=== PATIENT | female | born 1935 | race Caucasian/White ===

== ENCOUNTER 2019-06-01 08:14 | Emergency (ER) | payer MEDICARE, OTHER ==
[~2019-06-01] VITALS: Ht 154.9 cm; Wt 84.4 kg
[~2019-06-01 08:14] MED LIST: METO50TA16 PO
[2019-06-01] MEDS ORDERED: diphenhydrAMINE HCL 50 MG/ML VIAL ONE (08:57)
[2019-06-01] MEDS ORDERED: ONDANSETRON HCL/PF 4 MG/2 ML VIAL ONE (08:57)
[2019-06-01] MEDS ORDERED: diphenhydrAMINE HCL 50 MG/ML VIAL IV ONE (09:00)
[2019-06-01] MEDS ORDERED: ONDANSETRON HCL/PF 4 MG/2 ML VIAL IVP ONE (09:00)
[2019-06-01] MEDS ORDERED: IV NS 0.9% 1,000 ML BAG IV ONE (09:00)
--- NOTE | 2019-06-01 09:05 | NUR ---
ANIBAL RA 89 From home "General weak -woke up this am felt no energy Got up/dressed/weak BS 126. PT AAOX4, VSS, RR EVEN & UNLABORED. PT ALSO C/O UPPER ABD PAIN WITH NAUSEA/DIARRHEA THIS AM. DENIES ANY OTHER DISCOMFORT. PT SEEN & EVAL'D BY DR. HURTADO. MEDICATED ORDERED. JOB COMPOSITOR @ BS FOR EVAL & WILL CONT TO MONITOR.
[2019-06-01 09:23] LABS: BASOPHILS # (AUTO) 0.1 /CMM (0.0-0.2); BASOPHILS % (AUTO) 0.7 % (0.0-2.0); EOSINOPHILS % (AUTO) 2.1 % (0.0-6.0); HEMATOCRIT 34 % (33-45); HEMOGLOBIN 11.3 g/dL (11.5-14.8); LYMPHOCYTES # (AUTO) 2.5 /CMM (0.8-4.8); LYMPHOCYTES % (AUTO) 34.3 % (20.0-44.0); MEAN CORPUSCULAR HGB CONC 33 g/dl (31.0-36.0); MEAN CORPUSCULAR VOLUME 93 fL (82-100); MONOCYTES # (AUTO) 0.4 /CMM (0.1-1.30); NEUTROPHILS # (AUTO) 4.3 /CMM (1.8-8.9); NEUTROPHILS % (AUTO) 57.9 % (43.0-81.0); PLATELET COUNT (AUTO) 234 /CMM (150-450); RED BLOOD CELL COUNT(AUTO) 3.65 MIL/uL (4.0-5.2); WHITE BLOOD COUNT (AUTO) 7.4 K/uL (4.3-11.0)
[2019-06-01 09:28] LABS: CALCIUM, SERUM 9.4 mg/dL (8.5-10.1); CARBON DIOXIDE 28 mmol/L (21-32); CHLORIDE 106 mmol/L (98-107); CREATININE 1.7 mg/dL (0.6-1.3); GLUCOSE 136 mg/dL (74-106); SODIUM SERUM 142 mmol/L (136-145); UREA NITROGEN, BLOOD 29 mg/dL (7-18)
[2019-06-01 09:34] LABS: ALANINE AMINOTRANSFERASE 23 U/L (12-78); ALBUMIN 3.1 g/dL (3.4-5.0); ALKALINE PHOSPHATASE 63 U/L (46-116); ASPARTATE AMINOTRANSFERASE 20 U/L (15-37); BILIRUBIN,DIRECT 0.1 mg/dL (0.0-0.2); BILIRUBIN,TOTAL 0.2 mg/dL (0.2-1.0); TOTAL PROTEIN, SERUM 7.1 g/dL (6.4-8.2)
[2019-06-01 10:49] VITALS: BP 124/84
--- NOTE | 2019-06-01 10:49 | NUR ---
Patient discharged to home in stable condition. Written and verbal after care instructions given. Patient verbalizes understanding of instruction. IV removed. Catheter intact and site benign. Pressure and 4x4 applied to site. No bleeding noted.
== END 2019-06-01 10:51 | disposition home or self-care (01) ==
LOC: ER 08:18
DX: R42 Dizziness and giddiness (principal); I10 Essential (primary) hypertension; E78.00 Pure hypercholesterolemia, unspecified; Z79.899 Other long term (current) drug therapy
CPT/HCPCS: 36415; 70450; 71045; 76705; 80048; 80076; 84484; 85025; 93005; 96361; 96374; 96375; 99284; J1200; J2405; J7030

== ENCOUNTER 2020-11-22 20:33 | Emergency (ER) | payer MEDICARE, OTHER ==
[~2020-11-22] VITALS: Ht 154.9 cm; Wt 75.3 kg
--- NOTE | 2020-11-22 20:47 | NUR ---
PATIENT CAME TO ER BED 11 C/O LEFT WRIST PAIN WITH LEFT WRIST DEFORMITY S/[ FALL. PATIENT IS ALERT AND ORIENTED x4. PATIENT STATES THAT SHE HAD FALLEN ON HERSELF AFTER FEELING DIZZY. PATIENT IS BREATHING EVENLY WITH EVEN RISE AND FALL OF THE CHEST. CONNECTED TO THE MONITOR. WITH SON AT BEDSIDE FOR TRANSLATION.
[2020-11-22] MEDS ORDERED: ACETAMINOPHEN ES 500 MG TABLET ONE (21:09)
--- NOTE | 2020-11-22 21:14 | NUR ---
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 PT REQUESTED TO TAKE 500MG TYLENOL ES.
[2020-11-22] MEDS ORDERED: ACETAMINOPHEN ES 500 MG TABLET PO ONE ×2 (21:30)
[2020-11-22] MEDS ORDERED: HYDR-3980 PO (21:37)
--- NOTE | 2020-11-22 21:47 | NUR ---
EMT AT BEDSIDE FOR SPLINT
[2020-11-22 22:12] VITALS: BP 143/82
--- NOTE | 2020-11-22 22:12 | NUR ---
Patient discharged to home in stable condition. Written and verbal after care instructions given. Patient verbalizes understanding of instruction and RX. Left with son.
== END 2020-11-22 22:13 | disposition home or self-care (01) ==
LOC: ER 20:37
DX: S52.592A Other fractures of lower end of left radius, initial encounter for closed fracture (principal); I10 Essential (primary) hypertension; E78.00 Pure hypercholesterolemia, unspecified; W19.XXXA Unspecified fall, initial encounter; Y93.01 Activity, walking, marching and hiking; Y92.89 Other specified places as the place of occurrence of the external cause; Y99.8 Other external cause status
CPT/HCPCS: 73110

== ENCOUNTER 2023-02-01 11:38 | Emergency (ER) | payer MEDICARE, OTHER ==
[~2023-02-01] VITALS: Ht 154.9 cm; Wt 68.5 kg
[~2023-02-01 11:38] MED LIST changes: +HYDR-3980 PO
[2023-02-01 12:21] LABS: BASOPHILS % (AUTO) 0.3 % (0.0-2.0); EOSINOPHILS % (AUTO) 0.1 % (0.0-6.0); HEMATOCRIT 30 % (33-45); HEMOGLOBIN 9.5 g/dL (11.5-14.8); LYMPHOCYTES # (AUTO) 1.9 K/uL (0.8-4.8); MEAN CORPUSCULAR HEMOGLOBIN 31 PG (26.0-33.0); MEAN CORPUSCULAR HGB CONC 32 g/dl (31.0-36.0); MEAN CORPUSCULAR VOLUME 96 fL (82-100); MONOCYTES # (AUTO) 0.2 K/uL (0.1-1.30); NEUTROPHILS # (AUTO) 9.5 K/uL (1.8-8.9); NEUTROPHILS % (AUTO) 81.6 % (43.0-81.0); PLATELET COUNT (AUTO) 341 K/uL (150-450); RED BLOOD CELL COUNT(AUTO) 3.08 MIL/uL (4.0-5.2); RED CELL DISTRIBUTION WIDTH 16.1 % (11.5-15.0); WHITE BLOOD COUNT (AUTO) 11.7 K/uL (4.3-11.0)
[2023-02-01 12:38] LABS: CALCIUM, SERUM 9.7 mg/dL (8.5-10.1); CARBON DIOXIDE 21 mmol/L (21-32); CHLORIDE 101 mmol/L (98-107); CREATININE 2.1 mg/dL (0.6-1.3); GLUCOSE 186 mg/dL (74-106); SODIUM SERUM 135 mmol/L (136-145); UREA NITROGEN, BLOOD 25 mg/dL (7-18)
[2023-02-01 12:50] LABS: NT-PRO BNP 1427 pg/mL (0-125)
[2023-02-01] MEDS ORDERED: IV NS 0.9% 1,000 ML IV ONE (13:30)
[2023-02-01 13:48] LABS: THYROID STIMULATING HORMONE 1.048 uIU/mL (0.358-3.74)
[2023-02-01 13:58] LABS: MAGNESIUM 2.2 mg/dL (1.8-2.4)
[2023-02-01] MEDS ORDERED: PANT40TA49 PO (15:37)
[2023-02-01 16:20] VITALS: BP 130/60; TEMP 98.7; O2SAT 96
== END 2023-02-01 16:00 | disposition home or self-care (01) ==
LOC: ER 11:38
DX: R00.2 Palpitations (principal); I10 Essential (primary) hypertension; K21.9 Gastro-esophageal reflux disease without esophagitis; E78.00 Pure hypercholesterolemia, unspecified; Z79.899 Other long term (current) drug therapy
CPT/HCPCS: 99285; 96360; 71045; 93005; 85025; 80048; 83735; 36415; 84439; 84443; 84484 ×2; 83880; J7030

== ENCOUNTER 2023-05-09 09:11 | Inpatient (IN) | payer MEDICARE, OTHER ==
[~2023-05-09] VITALS: Ht 162.6 cm; Wt 68.0 kg
[~2023-05-09 09:11] MED LIST changes: +PANT40TA49 PO
[2023-05-09] MEDS ORDERED: MORPHINE SULFATE INJ 2 MG/ML DISP.SYRIN ONE (09:45)
[2023-05-09 09:50] LABS: BASOPHILS # (AUTO) 0.1 K/uL (0.0-0.2); BASOPHILS % (AUTO) 0.8 % (0.0-2.0); EOSINOPHILS # (AUTO) 0.1 K/uL (0.0-0.7); EOSINOPHILS % (AUTO) 1.4 % (0.0-6.0); HEMATOCRIT 30 % (33-45); HEMOGLOBIN 9.6 g/dL (11.5-14.8); LYMPHOCYTES # (AUTO) 2.2 K/uL (0.8-4.8); LYMPHOCYTES % (AUTO) 25.2 % (20.0-44.0); MEAN CORPUSCULAR HEMOGLOBIN 31 PG (26.0-33.0); MEAN CORPUSCULAR HGB CONC 33 g/dl (31.0-36.0); MEAN CORPUSCULAR VOLUME 95 fL (82-100); MONOCYTES # (AUTO) 0.6 K/uL (0.1-1.30); MONOCYTES % (AUTO) 6.6 % (2.0-12.0); NEUTROPHILS # (AUTO) 5.8 K/uL (1.8-8.9); PLATELET COUNT (AUTO) 293 K/uL (150-450); RED BLOOD CELL COUNT(AUTO) 3.12 MIL/uL (4.0-5.2); RED CELL DISTRIBUTION WIDTH 15.6 % (11.5-15.0); WHITE BLOOD COUNT (AUTO) 8.8 K/uL (4.3-11.0)
[2023-05-09 10:00] LABS: CALCIUM, SERUM 9.5 mg/dL (8.5-10.1); CARBON DIOXIDE 27 mmol/L (21-32); CHLORIDE 100 mmol/L (98-107); CREATININE 1.7 mg/dL (0.6-1.3); GLUCOSE 124 mg/dL (74-106); INR 1.05 (0.91-1.10); PARTIAL THROMBOPLASTIN TIME 28.8 SEC (24.3-34.3); POTASSIUM 4.2 mmol/L (3.5-5.1); PROTHROMBIN TIME 11.1 SECS (9.2-11.1); SODIUM SERUM 135 mmol/L (136-145); UREA NITROGEN, BLOOD 21 mg/dL (7-18)
[2023-05-09] MEDS ORDERED: MORPHINE SULFATE INJ 2 MG/ML DISP.SYRIN IV ONE (10:00)
[2023-05-09 10:06] LABS: ALANINE AMINOTRANSFERASE 22 U/L (12-78); ALBUMIN 3.3 g/dL (3.4-5.0); ALKALINE PHOSPHATASE 95 U/L (46-116); ASPARTATE AMINOTRANSFERASE 24 U/L (15-37); BILIRUBIN,DIRECT 0.1 mg/dL (0.0-0.2); BILIRUBIN,TOTAL 0.3 mg/dL (0.2-1.0); TOTAL PROTEIN, SERUM 8.1 g/dL (6.4-8.2)
[2023-05-09 10:11] LABS: LACTIC ACID 1.6 mmol/L (0.4-2.0)
[2023-05-09] MEDS ORDERED: FLUO20CA42 PO (10:12)
[2023-05-09] MEDS ORDERED: VITA1CAP PO (10:12)
[2023-05-09] MEDS ORDERED: ARIP2TAB19 PO (10:12)
[2023-05-09] MEDS ORDERED: LISI20TA30 PO (10:12)
[2023-05-09] MEDS ORDERED: PANT40TA2 PO (10:12)
[2023-05-09] MEDS ORDERED: ALLO100T PO (10:12)
[2023-05-09] MEDS ORDERED: METO-357 PO (10:12)
[2023-05-09 12:00] VITALS: BP 151/96; TEMP 98.4; O2SAT 97
[2023-05-09] MEDS ORDERED: ONDANSETRON HCL/PF 4 MG/2 ML VIAL IVP PRN (12:00)
[2023-05-09] MEDS ORDERED: MAG HYDROX/AL HYDROX/SIMETH 30 ML UDC PO PRN (12:00)
[2023-05-09] MEDS ORDERED: ACETAMINOPHEN 325 MG TABLET PO PRN (12:00)
[2023-05-09] MEDS ORDERED: Z GUARD REMEDY 4 OZ OINT TP PRN (12:00)
[2023-05-09] MEDS ORDERED: IV NS 0.9% 1,000 ML IV PRN (12:00)
[2023-05-09] MEDS ORDERED: HYDROCODONE/APAP 5/325MG TABLET PO PRN (12:00)
[2023-05-09] MEDS ORDERED: MORPHINE SULFATE INJ 2 MG/ML DISP.SYRIN IV PRN (12:00)
[2023-05-09] MEDS ORDERED: MAGNESIUM HYDROXIDE 30 ML UDC PO PRN (12:00)
[2023-05-09] MEDS: IV 1/2NS 1000 ML 1,000 ML IV PRN (15:36)
[2023-05-09 16:00] VITALS: BP 159/61; TEMP 98.6; O2SAT 97
[2023-05-09 20:00] VITALS: BP 123/93; TEMP 98.8; O2SAT 95
[2023-05-09] MEDS ORDERED: ENOXAPARIN SODIUM 30 MG/0.3 ML DISP.SYRIN SQ SCH (21:00)
[2023-05-10] MEDS: IV 1/2NS 1000 ML 1,000 ML IV PRN (04:54)
[2023-05-10 06:28] LABS: BASOPHILS % (AUTO) 0.5 % (0.0-2.0); EOSINOPHILS # (AUTO) 0.3 K/uL (0.0-0.7); EOSINOPHILS % (AUTO) 3.3 % (0.0-6.0); HEMATOCRIT 24 % (33-45); LYMPHOCYTES # (AUTO) 3.2 K/uL (0.8-4.8); MEAN CORPUSCULAR HEMOGLOBIN 31 PG (26.0-33.0); MEAN CORPUSCULAR HGB CONC 33 g/dl (31.0-36.0); MEAN CORPUSCULAR VOLUME 94 fL (82-100); MONOCYTES # (AUTO) 0.8 K/uL (0.1-1.30); MONOCYTES % (AUTO) 8.8 % (2.0-12.0); NEUTROPHILS # (AUTO) 4.4 K/uL (1.8-8.9); NEUTROPHILS % (AUTO) 50.4 % (43.0-81.0); PLATELET COUNT (AUTO) 242 K/uL (150-450); RED BLOOD CELL COUNT(AUTO) 2.58 MIL/uL (4.0-5.2); RED CELL DISTRIBUTION WIDTH 15.2 % (11.5-15.0); WHITE BLOOD COUNT (AUTO) 8.7 K/uL (4.3-11.0)
[2023-05-10 06:43] LABS: CALCIUM, SERUM 8.9 mg/dL (8.5-10.1); CARBON DIOXIDE 27 mmol/L (21-32); CHLORIDE 98 mmol/L (98-107); CREATININE 1.7 mg/dL (0.6-1.3); GLUCOSE 94 mg/dL (74-106); MAGNESIUM 2.1 mg/dL (1.8-2.4); PHOSPHORUS 3.1 mg/dL (2.5-4.9); POTASSIUM 4.1 mmol/L (3.5-5.1); SODIUM SERUM 132 mmol/L (136-145); UREA NITROGEN, BLOOD 23 mg/dL (7-18)
[2023-05-10 07:37] LABS: CHOLESTEROL 157 mg/dL (<200); HDL CHOLESTEROL 36 mg/dL (40-60); LDL 95 mg/dL (0-99); THYROID STIMULATING HORMONE 1.551 uIU/mL (0.358-3.74); TRIGLYCERIDES 90 mg/dL (30-150)
[2023-05-10] MEDS: PANTOPRAZOLE 40 MG TABLET.DR PO SCH (07:39)
[2023-05-10 08:00] VITALS: BP 149/54; TEMP 99.1; O2SAT 97
[2023-05-10] MEDS: ARIPIPRAZOLE 2 MG TABLET PO SCH (08:36)
[2023-05-10] MEDS: METOPROLOL SUCCINATE 50 MG TAB.SR.24H PO SCH (08:37)
[2023-05-10] MEDS: FLUOXETINE HCL 20 MG CAPSULE PO SCH (08:37)
[2023-05-10 09:40] VITALS: BP 135/57; O2SAT 97
[2023-05-10 09:42] VITALS: BP 142/79; O2SAT 97
[2023-05-10 09:44] VITALS: BP 141/74; O2SAT 97
[2023-05-10 11:16] LABS: IRON, SERUM 18 ug/dl (50-175); TOTAL IRON BINDING CAPACITY 203 ug/dl (250-450)
[2023-05-10 12:16] LABS: APPEARANCE,URINE CLEAR (CLEAR); BILIRUBIN,URINE NEGATIVE (NEGATIVE); BLOOD, URINE NEGATIVE Ery/uL (NEGATIVE); COLOR,URINE YELLOW (YELLOW); KETONES,URINE NEGATIVE (NEGATIVE); LEUKOCYTE ESTERASE ,URINE NEGATIVE (NEGATIVE); NITRITE, URINE NEGATIVE (NEGATIVE); PROTEIN,URINE NEGATIVE (NEGATIVE); UGLUCOSE NEGATIVE (NEGATIVE); UROBILINOGEN,URINE 0.2 EU/dL (0.2)
[2023-05-10] MEDS ORDERED: VANCOMYCIN 1 GM in IV D5W 250ml IV SCH (13:00)
[2023-05-10] MEDS ORDERED: IV NS 0.9% 1,000 ML IV ONE (15:00)
[2023-05-10 16:00] VITALS: BP 152/60; TEMP 98.6; O2SAT 98
[2023-05-10 20:00] VITALS: BP 135/87; TEMP 98.6; O2SAT 98
[2023-05-10 23:27] LABS: CREATININE, URINE 24.9 MG/DL (30.0-125.0); URINE TOTAL PROTEIN 15.8 mg/dL (0-11.9)
[2023-05-11 05:51] LABS: BASOPHILS % (AUTO) 0.4 % (0.0-2.0); EOSINOPHILS # (AUTO) 0.2 K/uL (0.0-0.7); EOSINOPHILS % (AUTO) 2.2 % (0.0-6.0); HEMATOCRIT 26 % (33-45); HEMOGLOBIN 8.8 g/dL (11.5-14.8); LYMPHOCYTES % (AUTO) 27.8 % (20.0-44.0); MEAN CORPUSCULAR HEMOGLOBIN 31 PG (26.0-33.0); MEAN CORPUSCULAR HGB CONC 33 g/dl (31.0-36.0); MEAN CORPUSCULAR VOLUME 94 fL (82-100); MONOCYTES # (AUTO) 0.6 K/uL (0.1-1.30); MONOCYTES % (AUTO) 8.5 % (2.0-12.0); NEUTROPHILS # (AUTO) 4.5 K/uL (1.8-8.9); NEUTROPHILS % (AUTO) 61.1 % (43.0-81.0); PLATELET COUNT (AUTO) 283 K/uL (150-450); RED BLOOD CELL COUNT(AUTO) 2.81 MIL/uL (4.0-5.2); RED CELL DISTRIBUTION WIDTH 15.1 % (11.5-15.0); WHITE BLOOD COUNT (AUTO) 7.4 K/uL (4.3-11.0)
[2023-05-11 06:12] LABS: ALANINE AMINOTRANSFERASE 22 U/L (12-78); ALANINE AMINOTRANSFERASE 23 U/L (12-78); ALBUMIN 2.7 g/dL (3.4-5.0); ALBUMIN 2.8 g/dL (3.4-5.0); ALKALINE PHOSPHATASE 79 U/L (46-116); ALKALINE PHOSPHATASE 80 U/L (46-116); ASPARTATE AMINOTRANSFERASE 23 U/L (15-37); BILIRUBIN,DIRECT 0.1 mg/dL (0.0-0.2); BILIRUBIN,TOTAL 0.2 mg/dL (0.2-1.0); BILIRUBIN,TOTAL 0.3 mg/dL (0.2-1.0); CALCIUM, SERUM 9.2 mg/dL (8.5-10.1); CALCIUM, SERUM 9.3 mg/dL (8.5-10.1); CARBON DIOXIDE 28 mmol/L (21-32); CHLORIDE 100 mmol/L (98-107); CREATININE 1.4 mg/dL (0.6-1.3); GLUCOSE 100 mg/dL (74-106); MAGNESIUM 2.5 mg/dL (1.8-2.4); PHOSPHORUS 2.8 mg/dL (2.5-4.9); POTASSIUM 4.1 mmol/L (3.5-5.1); SODIUM SERUM 135 mmol/L (136-145); TOTAL PROTEIN, SERUM 7.1 g/dL (6.4-8.2); TOTAL PROTEIN, SERUM 7.2 g/dL (6.4-8.2); UREA NITROGEN, BLOOD 24 mg/dL (7-18)
[2023-05-11 06:16] LABS: CREATINE KINASE, TOTAL 77 U/L (26-192)
[2023-05-11 08:00] VITALS: BP 148/87; TEMP 97.5; O2SAT 99
[2023-05-11] MEDS: PANTOPRAZOLE 40 MG TABLET.DR PO SCH (08:36)
[2023-05-11] MEDS: FLUOXETINE HCL 20 MG CAPSULE PO SCH (08:36)
[2023-05-11] MEDS: ARIPIPRAZOLE 2 MG TABLET PO SCH (08:37)
[2023-05-11] MEDS: METOPROLOL SUCCINATE 50 MG TAB.SR.24H PO SCH (08:42)
[2023-05-11] MEDS: SOD FERRIC GLUC 125 MG in IV NS 0.9% 100 ML IV SCH (15:15)
[2023-05-11 16:00] VITALS: BP 111/94; TEMP 98.7; O2SAT 98
[2023-05-11 20:00] VITALS: BP 143/61; TEMP 97.8; O2SAT 97
[2023-05-12] MEDS ORDERED: VANCOMYCIN 1 GM in IV D5W 250ml IV SCH (01:00)
[2023-05-12 06:49] LABS: CALCIUM, SERUM 9.6 mg/dL (8.5-10.1); CARBON DIOXIDE 28 mmol/L (21-32); CHLORIDE 100 mmol/L (98-107); CREATININE 1.9 mg/dL (0.6-1.3); GLUCOSE 92 mg/dL (74-106); POTASSIUM 3.8 mmol/L (3.5-5.1); SODIUM SERUM 135 mmol/L (136-145); UREA NITROGEN, BLOOD 31 mg/dL (7-18)
[2023-05-12 08:00] VITALS: BP 150/60; TEMP 98.1; O2SAT 98
[2023-05-12 08:02] VITALS: BP 150/60
[2023-05-12] MEDS: METOPROLOL SUCCINATE 50 MG TAB.SR.24H PO SCH (08:02)
[2023-05-12] MEDS: ARIPIPRAZOLE 2 MG TABLET PO SCH (08:02)
[2023-05-12] MEDS: PANTOPRAZOLE 40 MG TABLET.DR PO SCH (08:02)
[2023-05-12] MEDS: FLUOXETINE HCL 20 MG CAPSULE PO SCH (08:02)
[2023-05-12 08:09] LABS: PTH, INTACT 48 pg/mL (15-65)
[2023-05-12] MEDS: SOD FERRIC GLUC 125 MG in IV NS 0.9% 100 ML IV SCH (13:05)
[2023-05-12 13:13] LABS: *SPE A/G RATIO 0.8 (0.7-1.7); *SPE ALPHA-1-GLOBULIN 0.3 g/dL (0.0-0.4); *SPE BETA GLOBULIN 1.1 g/dL (0.7-1.3); *SPE GLOBULIN, TOTAL 3.7 g/dL (2.2-3.9); *SPE M-SPIKE Not Observed g/dL (Not Observed); *SPE PROTEIN TOTAL 6.7 g/dL (6.0-8.5); *SPEGAMMA GLOBULIN 1.3 g/dL (0.4-1.8)
== END 2023-05-12 16:40 | DRG 556 ==
LOC: ER 09:13 → MED 11:28
PROVIDERS: ATTEND Internal Medicine
DX: M25.551 Pain in right hip (principal); F03.93 Unspecified dementia, unspecified severity, with mood disturbance; E87.1 Hypo-osmolality and hyponatremia; W19.XXXA Unspecified fall, initial encounter; Y92.009 Unspecified place in unspecified non-institutional (private) residence as the place of occurrence of the external cause; R29.6 Repeated falls; K21.9 Gastro-esophageal reflux disease without esophagitis; I12.9 Hypertensive chronic kidney disease with stage 1 through stage 4 chronic kidney disease, or unspecified chronic kidney disease; N18.9 Chronic kidney disease, unspecified; Z90.49 Acquired absence of other specified parts of digestive tract; Z53.20 Procedure and treatment not carried out because of patient's decision for unspecified reasons; Z79.899 Other long term (current) drug therapy; N83.202 Unspecified ovarian cyst, left side; M10.9 Gout, unspecified; E78.00 Pure hypercholesterolemia, unspecified; K57.30 Diverticulosis of large intestine without perforation or abscess without bleeding; F32.A Depression, unspecified; D64.9 Anemia, unspecified; I10 Essential (primary) hypertension; F17.200 Nicotine dependence, unspecified, uncomplicated; E66.9 Obesity, unspecified; E88.9 Metabolic disorder, unspecified
CPT/HCPCS: 36415; 70450-TC; 71045-TC; 72125-TC; 72170-TC; 72192-TC; 76770-TC; 76856-TC; 80048-TC; 80053-TC; 80061-TC; 80076-TC; 82550-TC; 82570-TC; 83540-TC; 83605-TC; 83735-TC; 83970; 84100-TC; 84155; 84165; 84300-TC; 84443-TC; 84484-TC; 85025-TC; 85730-TC; 86850-TC; 87040-TC; 87086-TC; 93307-TC; 97110-TC; 97112-TC; 97116-TC; 97530-TC; A4223; G0378; J1650; J2270; J2916; J3370; J3490; J7030; J7060